=== PATIENT | female | born 1990 | race African-American/Black ===

== ENCOUNTER 2019-06-30 11:48 | Emergency (ER) | payer OTHER ==
[~2019-06-30] VITALS: Ht 172.7 cm; Wt 86.2 kg
[~2019-06-30 11:48] MED LIST: EXCEDRIN MIGRA1 EACH PO; REGLAN10 MG ORAL
[2019-06-30] MEDS ORDERED: NKM (12:13)
[2019-06-30 12:28] VITALS: BP 102/65
--- NOTE | 2019-06-30 12:29 | NUR ---
ED Nurse Note: ambulated into ED due to sore throat, painful, productive cough with yellow phlegm x 1 week; reports no fever or chills. Tolerating oral fluids.
--- NOTE | 2019-06-30 12:29 | NUR ---
ED Nurse Note: RT contacted for breathing treatment
[2019-06-30] MEDS ORDERED: Ipratropium 0.02% Inh Soln 2.5ml UD HHN ONE (12:30)
[2019-06-30] MEDS ORDERED: Albuterol ud Inhalation HHN ONE (12:30)
[2019-06-30] MEDS ORDERED: Dexamethasone 4mg/ml vial IVP ONE (12:30)
[2019-06-30] MEDS ORDERED: ALBUTEROL SULF8.5 GM INH (12:33)
--- NOTE | 2019-06-30 12:33 | Emergency Room Report ---
History of Present Illness General Chief Complaint: Upper Respiratory Illness Source: Patient Present Illness HPI 29-year-old female presents with cough, congestion, wheezing x7 days, no fevers no chills no body aches, patient endorses some nasal congestion, no aggravating or alleviating factors no chest pain no shortness of breath severity is mild, constant Allergies: Coded Allergies: No Known Allergies (Unverified , 06/24/18) Patient History Past Medical History: see triage record Last Menstrual Period: 06/10/2019 Now: No Reviewed Nursing Documentation: PMH: Agreed; PSxH: Agreed Nursing Documentation-PMH Past Medical History: No Stated History Review of Systems All Other Systems: negative except mentioned in HPI Physical Exam Vital Signs Date Time Temp Pulse Resp B/P (MAP) Pulse Ox O2 Delivery O2 Flow Rate FiO2 06/30/19 12:10 98.2 80 15 102/65 (77) 99 Room Air Sp02 EP Interpretation: reviewed, normal General Appearance: well appearing, no apparent distress, alert Head: normocephalic, atraumatic Eyes: bilateral eye PERRL, bilateral eye EOMI ENT: uvula midline, moist mucus membranes, nasal congestion Neck: supple, thyroid normal, supple/symm/no masses Respiratory: no respiratory distress, no retraction, no accessory muscle use, wheezing - Mild Cardiovascular #1: normal peripheral pulses, regular rate, rhythm, no edema, no gallop, no murmur Gastrointestinal: non tender, soft, no guarding, no rebound Musculoskeletal: normal inspection Neurologic: alert, oriented x3 Psychiatric: mood/affect normal Skin: no rash, warm/dry Medical Decision Making Diagnostic Impression: Primary Impression: Upper respiratory infection Qualified Codes: J06.9 - Acute upper respiratory infection, unspecified Additional Impression: Bronchitis ER Course 29-year-old female presents most likely with URI, with component of bronchitis, with some noted wheezing, duo nebs given, steroids given Patient improved Chest x-ray negative for acute cardia pulmonary processes Disposition home with return precautions Chest X-Ray Diagnostic Results Chest X-Ray Diagnostic Results : Chest X-Ray Ordered: Yes # of Views/Limited/Complete: 1 View Indication: Chest Pain Interpretation: no consolidation, no effusion, no pneumothorax, no acute cardiopulmonary disease Impression: No acute disease Electronically Signed by: Tomi Solis MD Last Vital Signs Date Time Temp Pulse Resp B/P (MAP) Pulse Ox O2 Delivery O2 Flow Rate FiO2 06/30/19 12:28 98.2 80 15 102/65 99 Room Air Disposition: HOME, SELF-CARE Condition: Stable Scripts Albuterol Sulfate* (ALBUTEROL SULFATE MDI*) 8.5 Gm Hfa.aer.ad 2 PUFF INH Q4H PRN for cough/wheezing, #1 EA 0 Refills Prov: Tomi Solis MD 06/30/19 Referrals: [facility]. [facility] Patient Instructions: Upper Respiratory Infection, Adult Additional Instructions: The patient was provided with discharge instructions, notified to follow-up with a primary care doctor and or specialist in the next 24-48 hours, and to return to the ED if they have worsening of their symptoms. Please note that this report is being documented using [employer] technology. This can lead to erroneous entry secondary to incorrect interpretation by the dictating instrument. Tomi Solis MD Jun 30, 2019 12:33
[2019-06-30 12:59] VITALS: BP 102/65
--- NOTE | 2019-06-30 13:00 | NUR ---
ED Nurse Note: Pt cleared by health care Provider for discharge. DC instructions/prescription was given and explained to pt and verbalized understanding of teachings. All medical deviecs such as ID band removed. Pt is AAO x4, ambulatory and left with all personal belongings.
--- NOTE | 2019-06-30 14:00 | Diagnostic Imaging Report ---
Indication: Cough Technique: One view of the chest Comparison: none Findings: Lungs and pleural spaces are clear. The heart size is normal. Impression: Negative
== END 2019-06-30 13:00 | disposition home or self-care (01) ==
LOC: EMR 12:16
DX: J40 Bronchitis, not specified as acute or chronic (principal); J06.9 Acute upper respiratory infection, unspecified
CPT/HCPCS: 71045; 81025; 94640; 94664; 96374; 99284; J1100